=== PATIENT | male | born 1985 | race Hispanic/Latino ===

== ENCOUNTER 2018-05-06 09:57 | Inpatient (IN) | payer OTHER, SELFPAY ==
[~2018-05-06] VITALS: Ht 177.8 cm; Wt 103.4 kg
[2018-05-06 10:38] LABS: APPEARANCE,URINE Cloudy (CLEAR); BILIRUBIN,URINE Negative (NEGATIVE); COLOR,URINE Yellow (YELLOW); GLUCOSE, URINE (UA) >=1000 mg/dL (NEGATIVE); KETONES,URINE >=160 mg/dL (NEGATIVE); LEUKOCYTE ESTERASE ,URINE Negative (NEGATIVE); NITRATE,URINE Negative (NEGATIVE); OCCULT BLOOD,URINE Trace (NEGATIVE); PROTEIN,URINE POS 1+ (NEGATIVE); UROBILINOGEN,URINE 0.2 mg/dL (0.2-1.0)
[2018-05-06 10:47] LABS: BACTERIA,URINE Rare /HPF (None Seen); RBC,URINE 0-1 /HPF (0-1); SQUAMOUS EPITHELIAL CELL,UR None Seen /HPF (0-2); WBC,URINE 0-1 /HPF (0-1)
[2018-05-06 10:49] LABS: BASOPHILS % (AUTO) 0.4 % (0.0-5.0); EOSINOPHILS % (AUTO) 0.6 % (0.0-8.0); HEMATOCRIT 51.1 % (42-54); LYMPHOCYTES % (AUTO) 23.1 % (21.0-51.0); MEAN CORPUSCULAR HEMOGLOBIN 29.6 pg (27.0-33.0); MEAN CORPUSCULAR HGB CONC 33.8 g/dL (32.0-36.0); MEAN CORPUSCULAR VOLUME 87.3 fL (79-99); MONOCYTES % (AUTO) 6.9 % (3.0-13.0); NUCLEATED RED BLOOD CELLS 0.1 % (0.0-0.19); PLATELET COUNT (AUTO) 120 K/uL (130-400); RED BLOOD CELL COUNT(AUTO) 5.85 MIL/uL (4.50-6.20); RED CELL DISTRIBUTION WIDTH 14.5 % (11.0-15.5); WHITE BLOOD COUNT (AUTO) 7.5 K/uL (4.8-10.8)
[2018-05-06 10:59] LABS: ALANINE AMINOTRANSFERASE 21 U/L (12-78); ALBUMIN 3.7 g/dL (3.5-5.0); ASPARTATE AMINOTRANSFERASE 11 U/L (10-37); BILIRUBIN,DIRECT 0.2 mg/dL (0.0-0.3); BILIRUBIN,TOTAL 0.7 mg/dL (0.2-1.0); CARBON DIOXIDE 12 mmol/L (21-32); CHLORIDE 99 mmol/L (101-111); CREATININE 1.2 mg/dL (0.5-1.5); GLOMERULAR FILTR. RATE CALC 75 mL/min (>60); LIPASE 133 U/L (114-286); POTASSIUM 3.6 mmol/L (3.5-5.1); SODIUM SERUM 134 mmol/L (136-145); TOTAL PROTEIN, SERUM 7.5 g/dL (6.0-8.3); UREA NITROGEN, BLOOD 10 mg/dL (7-18)
[2018-05-06 11:04] LABS: GLUCOSE,RANDOM 422 mg/dL (70-105)
[2018-05-06 11:12] LABS: ACETONE,BLOOD POSITIVE SMALL (NEGATIVE)
[2018-05-06 11:24] LABS: ABG OXYGEN SATURATION 62.8 % (95.0-99.0); BASE EXCESS,VENOUS BLOOD GAS -15.9 (-2.0-3.0); HCO3,VENOUS BLOOD GAS 11.5 (21.0-28.0); PCO2,VENOUS BLOOD GAS 33 (35-48); PH,VENOUS BLOOD GAS 7.167 (7.350-7.450)
[2018-05-06] MEDS ORDERED: SODIUM CHLORIDE 0.9% 1000ML 1,000 ML IV ONE ×2 (11:38→13:11)
[2018-05-06] MEDS ORDERED: ONDANSETRON HCL 4 MG/2 ML VIAL ONE (11:38)
[2018-05-06] MEDS ORDERED: POTASSIUM BICARB/CIT AC 25 MEQ TABLET.EFF ONE (11:38)
[2018-05-06] MEDS ORDERED: INSULIN HUMULIN R 100 UNIT/ML 3ML ONE ×2 (11:39→11:52)
[2018-05-06] MEDS ORDERED: SODIUM CHLORIDE 0.9% 100 ML IV ONE (11:51)
[2018-05-06] MEDS ORDERED: CEPHALEXIN 500 MG CAPSULE ONE (11:56)
[2018-05-06 16:37] LABS: ABG OXYGEN SATURATION 55.9 % (95.0-99.0); BASE EXCESS,VENOUS BLOOD GAS -12.6 (-2.0-3.0); HCO3,VENOUS BLOOD GAS 14.3 (21.0-28.0); PCO2,VENOUS BLOOD GAS 36 (35-48); PH,VENOUS BLOOD GAS 7.212 (7.350-7.450)
[2018-05-06] MEDS ORDERED: DEXTROSE 5 %-0.45 % NACL 1,000 ML IV PRN (16:53)
[2018-05-06] MEDS ORDERED: SODIUM CHLORIDE 0.9% 1000ML 1,000 ML IV SCH (16:53)
[2018-05-06] MEDS: SODIUM CHLORIDE 0.9% 1000ML 1,000 ML IV SCH ×2 (16:53→21:53)
[2018-05-06 21:11] LABS: ABG OXYGEN SATURATION 56.2 % (95.0-99.0); BASE EXCESS,VENOUS BLOOD GAS -12.6 (-2.0-3.0); HCO3,VENOUS BLOOD GAS 14.2 (21.0-28.0); PCO2,VENOUS BLOOD GAS 36 (35-48); PH,VENOUS BLOOD GAS 7.218 (7.350-7.450)
[2018-05-06 22:06] LABS: CREATININE 1.1 mg/dL (0.5-1.5); POTASSIUM 3.3 mmol/L (3.5-5.1)
[2018-05-06] MEDS ORDERED: POTASSIUM CHLORIDE 20 MEQ ERTAB PO ONE (22:43)
[2018-05-07] MEDS ORDERED: POTASSIUM CHLORIDE 20 MEQ ERTAB PO ONE ×4 (00:31→12:17)
[2018-05-07] MEDS ORDERED: DEXTROSE 5 %-0.45 % NACL 1,000 ML IV ONE (00:53)
[2018-05-07 01:02] LABS: ABG OXYGEN SATURATION 83.1 % (95.0-99.0); BASE EXCESS,VENOUS BLOOD GAS -12.3 (-2.0-3.0); HCO3,VENOUS BLOOD GAS 13.5 (21.0-28.0); PCO2,VENOUS BLOOD GAS 31 (35-48); PH,VENOUS BLOOD GAS 7.253 (7.350-7.450)
[2018-05-07] MEDS: SODIUM CHLORIDE 0.9% 1000ML 1,000 ML IV SCH ×5 (02:53→22:03)
[2018-05-07] MEDS ORDERED: IPRATROPIUM/ALBUTEROL SULFATE 3 ML SOLUTION IH ONE (04:53)
[2018-05-07 05:04] LABS: ABG OXYGEN SATURATION 73.4 % (95.0-99.0); BASE EXCESS,VENOUS BLOOD GAS -11.1 (-2.0-3.0); HCO3,VENOUS BLOOD GAS 15.2 (21.0-28.0); PCO2,VENOUS BLOOD GAS 36 (35-48); PH,VENOUS BLOOD GAS 7.245 (7.350-7.450)
[2018-05-07 05:07] LABS: BASOPHILS % (AUTO) 0.5 % (0.0-5.0); EOSINOPHILS % (AUTO) 2.8 % (0.0-8.0); HEMATOCRIT 47.1 % (42-54); LYMPHOCYTES % (AUTO) 37.3 % (21.0-51.0); MEAN CORPUSCULAR HEMOGLOBIN 29.1 pg (27.0-33.0); MEAN CORPUSCULAR HGB CONC 33.7 g/dL (32.0-36.0); MEAN CORPUSCULAR VOLUME 86.3 fL (79-99); MONOCYTES % (AUTO) 7.4 % (3.0-13.0); NUCLEATED RED BLOOD CELLS 0.1 % (0.0-0.19); PLATELET COUNT (AUTO) 123 K/uL (130-400); RED BLOOD CELL COUNT(AUTO) 5.45 MIL/uL (4.50-6.20); RED CELL DISTRIBUTION WIDTH 14.4 % (11.0-15.5); WHITE BLOOD COUNT (AUTO) 5.8 K/uL (4.8-10.8)
[2018-05-07 05:32] LABS: POTASSIUM 3.1 mmol/L (3.5-5.1)
[2018-05-07 05:36] LABS: BILIRUBIN,TOTAL 0.5 mg/dL (0.2-1.0); TOTAL PROTEIN, SERUM 6.3 g/dL (6.0-8.3)
[2018-05-07] MEDS ORDERED: SODIUM BICARB 50MEQ 50ML VIAL ONE (05:50)
[2018-05-07] MEDS ORDERED: SODIUM CHLORIDE 0.9% 250 ML IV ONE (05:51)
[2018-05-07] MEDS: NICOTINE 21 MG/ 24 HR PATCH TD SCH (11:16)
[2018-05-07 11:41] LABS: CREATININE 0.8 mg/dL (0.5-1.5); POTASSIUM 3.4 mmol/L (3.5-5.1)
[2018-05-07] MEDS: POTASSIUM CHLORIDE 10MEQ/100ML 100 ML IV PRN (12:19)
[2018-05-07] MEDS ORDERED: INSULIN REGULAR, HUMAN 3ML 100 UNIT in SODIUM CHLORIDE 0.9% 99 ML IV PRN ×2 (16:15)
[2018-05-07] MEDS: D5W-1/2 NS/20MEQ KCL 1,000 ML IV SCH ×2 (16:18→18:51)
[2018-05-07] MEDS ORDERED: HYDROMORPHONE 1 MG/1 ML AMP IVP PRN (16:30)
[2018-05-07] MEDS ORDERED: HYDROCODONE/ACETAMINOPHEN 5/325 MG TAB PO PRN (16:30)
[2018-05-07] MEDS ORDERED: ONDANSETRON HCL 4 MG/2 ML VIAL IVP PRN (16:30)
[2018-05-07] MEDS ORDERED: ACETAMINOPHEN 325 MG TAB PO PRN ×2 (16:30)
[2018-05-07] MEDS ORDERED: ZOLPIDEM TARTRATE 5 MG TAB PO PRN (16:30)
[2018-05-07 16:34] LABS: ABG BASE EXCESS -6.3 mmol/L (-2.0-3.0); ABG HCO3 17.7 mmol/L (21.0-28.0); ABG OXYGEN SATURATION 97.4 % (95.0-99.0); ABG PCO2 32 mmHg (35-48)
[2018-05-07 17:07] LABS: CREATININE 0.8 mg/dL (0.5-1.5); POTASSIUM 3.6 mmol/L (3.5-5.1)
--- NOTE | 2018-05-07 17:30 | NUR ---
ASSUME CARE OF PATIETN FROM ER. STABLE IN NO DISTRESS
[2018-05-07 18:00] VITALS: BP 139/93
[2018-05-07] MEDS ORDERED: PHARMACY COMMUNICATION MISC SCH (18:15)
[2018-05-07] MEDS ORDERED: COMPOUND IV REFRIGERATED 1 EACH IVSOLN MISC PRN (18:30)
[2018-05-07 19:00] VITALS: BP 129/74
--- NOTE | 2018-05-07 19:10 | NUR ---
CURRENT LAB CALLED TO DR UBRNETT AND INFORMED HIM ABOUT ABSCESS'S TO LOWER ABDOMEN. ORDERS RECEIVED- PT WILL REMAIN ON IV INSULIN AND AVF PER DKA PROTOCOLS
[2018-05-07] MEDS: VANCOMYCIN 1.5 GM in SODIUM CHLORIDE 0.9% 250 ML IV SCH (19:15)
--- NOTE | 2018-05-07 19:28 | NUR ---
HAND OFF REPORT GIVEN TO BLU PAEZ
[2018-05-07 20:00] VITALS: BP 125/75
[2018-05-07] MEDS: ZOSYN 3.375GM+NS 50ML 50 ML IV SCH (20:39)
[2018-05-07 21:00] VITALS: BP 138/69
[2018-05-07] MEDS ORDERED: INSULIN HUMULIN R 100 UNIT/ML 3ML SQ SCH (21:00)
[2018-05-07 22:00] VITALS: BP 129/78
[2018-05-07 22:23] LABS: CREATININE 0.9 mg/dL (0.5-1.5); POTASSIUM 3.6 mmol/L (3.5-5.1)
[2018-05-07 23:00] VITALS: BP 124/64
[2018-05-08] VITALS (19 sets, daily range): BP systolic 108–128; BP diastolic 66–79
[2018-05-08] MEDS: SODIUM CHLORIDE 0.9% 1000ML 1,000 ML IV SCH ×5 (02:37→23:14)
[2018-05-08] MEDS: D5W-1/2 NS/20MEQ KCL 1,000 ML IV SCH (02:37)
[2018-05-08 03:55] LABS: BASOPHILS % (AUTO) 0.7 % (0.0-5.0); EOSINOPHILS % (AUTO) 2.2 % (0.0-8.0); HEMATOCRIT 44.8 % (42-54); LYMPHOCYTES % (AUTO) 40.9 % (21.0-51.0); MEAN CORPUSCULAR HEMOGLOBIN 29.6 pg (27.0-33.0); MEAN CORPUSCULAR HGB CONC 34.6 g/dL (32.0-36.0); MEAN CORPUSCULAR VOLUME 85.7 fL (79-99); MONOCYTES % (AUTO) 7.7 % (3.0-13.0); NEUTROPHILS % (AUTO) 48.5 % (40.0-77.0); NUCLEATED RED BLOOD CELLS 0.2 % (0.0-0.19); PLATELET COUNT (AUTO) 100 K/uL (130-400); RED BLOOD CELL COUNT(AUTO) 5.23 MIL/uL (4.50-6.20); RED CELL DISTRIBUTION WIDTH 14.4 % (11.0-15.5); WHITE BLOOD COUNT (AUTO) 5.2 K/uL (4.8-10.8)
[2018-05-08 04:07] LABS: CREATININE 0.7 mg/dL (0.5-1.5); MAGNESIUM 1.7 mg/dL (1.80-2.40)
[2018-05-08] MEDS ORDERED: MAGNESIUM 2GM PREMIX 50ML 50 ML IV PRN (04:30)
[2018-05-08] MEDS ORDERED: MAGNESIUM 2GM PREMIX 50ML 50 ML IV ONE (05:07)
[2018-05-08] MEDS: ZOSYN 3.375GM+NS 50ML 50 ML IV SCH ×3 (05:11→19:28)
[2018-05-08] MEDS ORDERED: POTASSIUM CHLORIDE 20MEQ/100ML 100 ML IV ONE (05:13)
[2018-05-08] MEDS: POTASSIUM CHLORIDE 10MEQ/100ML 100 ML IV PRN (05:15)
[2018-05-08] MEDS ORDERED: METF-444 PO (08:08)
[2018-05-08] MEDS ORDERED: ENAL10TA PO (08:08)
[2018-05-08] MEDS ORDERED: POTASSIUM CHLORIDE 20 MEQ ERTAB PO ONE (10:11)
[2018-05-08] MEDS: VANCOMYCIN 1.5 GM in SODIUM CHLORIDE 0.9% 250 ML IV SCH ×2 (10:13→21:10)
[2018-05-08] MEDS: NICOTINE 21 MG/ 24 HR PATCH TD SCH (10:14)
[2018-05-08] MEDS: PANTOPRAZOLE SODIUM 40 MG TABLET.DR PO SCH (10:14)
[2018-05-08 10:39] LABS: ABG BASE EXCESS -3.6 mmol/L (-2.0-3.0); ABG HCO3 20.6 mmol/L (21.0-28.0); ABG OXYGEN SATURATION 97.2 % (95.0-99.0); ABG PCO2 35 mmHg (35-48)
[2018-05-08] MEDS ORDERED: INSULIN GLARGINE 100 UNITS/ML 10 ML VIAL SQ SCH (10:45)
--- NOTE | 2018-05-08 14:06 | NUR ---
RD notification for Diabetes Education RD offered and provide diabetes and nutrition education with patient. Pt was agreeable, stated would have more questions, however not present. RD provided reference materials and handouts for further review. Patient agreed to review and was encouraged to ask questions. RD to follow up. Addendum: 05/08/18 at [address] RD Amended: Links added.
--- NOTE | 2018-05-08 14:18 | NUR ---
RD Notification for Diabetic Education Patient NPO at time of screen. Patient LBM 05/07/18. Patient Obesity grade I. Patient monitored labs: K 3.0, BUN 6, Glu 197, Ca 8.3, Mg 1.70. RD to continue to monitor. RD provided nutrition education. When medically feasible, rec to advance diet to 75gm CCD as tolerated. RD to follow up. Please notify RD as nutritional concerns arise. Thank you. Addendum: 05/08/18 at [address] RD Amended: Links added.
[2018-05-08] MEDS: INSULIN HUMULIN R 100 UNIT/ML 3ML SQ SCH ×2 (16:47→20:39)
--- NOTE | 2018-05-08 17:50 | NUR ---
Report given to Bessie in [facility]. Patient will be going on telepack.
--- NOTE | 2018-05-08 18:30 | NUR ---
DC PLAN VISITED WITH PATIENT. PATIENT LIVES WITH SPOUSE. INDEPENDENT ABLE TO PERFORM ADL'S. PATIENT HAS NO SERVICES OR DME'S. FEELS SAFE TO RETURN HOME. Addendum: 05/08/18 at 1831 by MARCELINO HOPPER RN CM Amended: Links added.
[2018-05-08] MEDS: INSULIN GLARGINE 100 UNITS/ML 10 ML VIAL SQ SCH (20:38)
[2018-05-09] MEDS: SODIUM CHLORIDE 0.9% 1000ML 1,000 ML IV SCH ×2 (03:14→09:53)
[2018-05-09] MEDS: ZOSYN 3.375GM+NS 50ML 50 ML IV SCH ×3 (03:47→20:36)
[2018-05-09 03:58] VITALS: BP 110/66
[2018-05-09 04:52] LABS: BASOPHILS % (AUTO) 0.5 % (0.0-5.0); EOSINOPHILS % (AUTO) 2.3 % (0.0-8.0); HEMATOCRIT 44.2 % (42-54); LYMPHOCYTES % (AUTO) 36.3 % (21.0-51.0); MEAN CORPUSCULAR HGB CONC 33.6 g/dL (32.0-36.0); MEAN CORPUSCULAR VOLUME 86.4 fL (79-99); MONOCYTES % (AUTO) 8.1 % (3.0-13.0); NEUTROPHILS % (AUTO) 52.8 % (40.0-77.0); PLATELET COUNT (AUTO) 108 K/uL (130-400); RED BLOOD CELL COUNT(AUTO) 5.12 MIL/uL (4.50-6.20); RED CELL DISTRIBUTION WIDTH 14.4 % (11.0-15.5); WHITE BLOOD COUNT (AUTO) 5.2 K/uL (4.8-10.8)
[2018-05-09 05:05] LABS: CREATININE 0.7 mg/dL (0.5-1.5); MAGNESIUM 1.8 mg/dL (1.80-2.40); POTASSIUM 3.5 mmol/L (3.5-5.1)
[2018-05-09] MEDS: INSULIN HUMULIN R 100 UNIT/ML 3ML SQ SCH ×4 (06:30→20:58)
[2018-05-09] MEDS: INSULIN GLARGINE 100 UNITS/ML 10 ML VIAL SQ SCH ×2 (06:31→20:57)
[2018-05-09 08:00] VITALS: BP 116/78
[2018-05-09] MEDS: PANTOPRAZOLE SODIUM 40 MG TABLET.DR PO SCH (09:09)
[2018-05-09] MEDS: NICOTINE 21 MG/ 24 HR PATCH TD SCH (09:10)
[2018-05-09] MEDS: VANCOMYCIN 1.75 GM in SODIUM CHLORIDE 0.9% 250 ML IV SCH ×2 (11:42→22:52)
[2018-05-09 12:00] VITALS: BP 113/74
[2018-05-09 16:00] VITALS: BP 129/73
[2018-05-09 20:00] VITALS: BP 115/75
[2018-05-09 23:42] VITALS: BP 112/68
[2018-05-10 04:00] VITALS: BP 106/64
[2018-05-10] MEDS: ZOSYN 3.375GM+NS 50ML 50 ML IV SCH (04:16)
[2018-05-10] MEDS: INSULIN GLARGINE 100 UNITS/ML 10 ML VIAL SQ SCH ×2 (06:35→21:37)
[2018-05-10] MEDS: INSULIN HUMULIN R 100 UNIT/ML 3ML SQ SCH ×4 (06:36→21:00)
[2018-05-10 08:00] VITALS: BP 100/68
[2018-05-10] MEDS: PANTOPRAZOLE SODIUM 40 MG TABLET.DR PO SCH (08:10)
[2018-05-10] MEDS: NICOTINE 21 MG/ 24 HR PATCH TD SCH (08:10)
[2018-05-10] MEDS: VANCOMYCIN 1.75 GM in SODIUM CHLORIDE 0.9% 250 ML IV SCH (08:28)
[2018-05-10 12:00] VITALS: BP 112/78
[2018-05-10 16:00] VITALS: BP 119/78
--- NOTE | 2018-05-10 17:16 | NUR ---
CM NOTE cm spoke to pt regarding self pay packet. CM explained that [facility] has screened as well. Notified pt that they will f/u if pending any information. CM also provided pt with [facility] program information. CM updated nursing.
[2018-05-10 19:54] VITALS: BP 131/82
[2018-05-10] MEDS: SULFAMETHOX-TMP DS 800/160 TAB PO SCH (21:34)
[2018-05-10 23:29] VITALS: BP 131/82
[2018-05-11 03:52] VITALS: BP 108/67
[2018-05-11] MEDS: INSULIN HUMULIN R 100 UNIT/ML 3ML SQ SCH ×2 (06:27→13:01)
[2018-05-11] MEDS: INSULIN GLARGINE 100 UNITS/ML 10 ML VIAL SQ SCH (06:28)
[2018-05-11 07:00] VITALS: BP 105/65
[2018-05-11] MEDS: PANTOPRAZOLE SODIUM 40 MG TABLET.DR PO SCH (09:19)
[2018-05-11] MEDS: SULFAMETHOX-TMP DS 800/160 TAB PO SCH (09:19)
[2018-05-11] MEDS: NICOTINE 21 MG/ 24 HR PATCH TD SCH (09:20)
--- NOTE | 2018-05-11 10:00 | NUR ---
cm note met with patient and informed of md med ordered. and available at [facility] on $4 programs also the novolin 70/30 $24.01 for a bottle, and also supplies for glucometer and strips at discounted prices. provided list of low income clinics in the area, instructed on importance of md followup. pt verbalizes understanding and will followup with meds and md.
[2018-05-11 11:00] VITALS: BP 113/68
--- NOTE | 2018-05-11 15:06 | NUR ---
DIABETES DIET EDUCATION: Pt NEWLY DIAGNOSED DM. JOSE C PROVIDED PT WITH PRINTED MATERIALS ON DM DIET. PRESENT AT BEDSIDE AND BOTH WITH MULTIPLE DIET QUESTIONS, ALL QUESTIONS ANSWERED BY JOSE C. JOSE C REVIEWED CHO COUNTING, PORTION CONTROL AND NUTRITION LABEL READING TIPS. MULTIPLE RECIPE EXAMPLES GIVEN. Pt AND BOTH VERBALIZE UNDERSTANDING. BOT HAVE BEEN ENCOURAGED TO FOLLOW UP WITH OUTPATIENT DM DIET CLASSES TO CONTINUE LEARNING ABOUT APPROPRIATE DM DIET. Addendum: 05/11/18 at [address] RD Amended: Links added.
== END 2018-05-11 15:10 | disposition home or self-care (01) | DRG 638 ==
LOC: EDH 09:57 → EDHIP 09:58 → 2CH 05-07 17:27 → 3BH 05-08 17:52
PROVIDERS: ADMIT Internal Medicine; ATTEND Internal Medicine
PROC: 0JD83ZZ Extraction of Abdomen Subcutaneous Tissue and Fascia, Percutaneous Approach (ICD-10-PCS; principal; 2018-05-09)
DX: E11.10 Type 2 diabetes mellitus with ketoacidosis without coma (principal); L02.211 Cutaneous abscess of abdominal wall; L03.90 Cellulitis, unspecified; F17.210 Nicotine dependence, cigarettes, uncomplicated; E66.9 Obesity, unspecified; L73.9 Follicular disorder, unspecified; Z68.32 Body mass index [BMI] 32.0-32.9, adult; Z79.4 Long term (current) use of insulin; Z91.19 Patient's noncompliance with other medical treatment and regimen
CPT/HCPCS: 36415; 36600; 80048; 80053; 80076; 80202; 81001; 82009; 82435; 82803; 82947; 82948; 83605; 83690; 83735; 84132; 84295; 85018; 85025; 87040; 99291; G0378; J1815; J2405; J2543; J3370; J3475; J3480; J3490; J7030; J7042

== ENCOUNTER 2018-11-07 21:50 | Emergency (ER) | payer OTHER, SELFPAY ==
[~2018-11-07 21:50] MED LIST: ENAL10TA PO; METF-444 PO
[2018-11-07] MEDS ORDERED: IBUPROFEN 100 MG/5 ML SUSP UDCUP ONE (22:32)
[2018-11-07] MEDS ORDERED: KETOROLAC TROMETHAMINE 60 MG/2 ML VIAL ONE (22:50)
[2018-11-07] MEDS ORDERED: LIDOCAINE 5% TOPICAL PATCH TP ONE (22:50)
== END 2018-11-07 23:41 | disposition home or self-care (01) ==
LOC: EDH 21:50
DX: S29.012A Strain of muscle and tendon of back wall of thorax, initial encounter (principal); E11.9 Type 2 diabetes mellitus without complications; Z72.0 Tobacco use; V49.49XA Driver injured in collision with other motor vehicles in traffic accident, initial encounter; Y93.89 Activity, other specified; Y92.89 Other specified places as the place of occurrence of the external cause; Y99.8 Other external cause status
CPT/HCPCS: 96372; 99283; J1885